=== PATIENT | female | born 1995 | race African-American/Black ===

== ENCOUNTER 2019-01-21 06:59 | Inpatient (IN) ==
[2019-01-21] MEDS ORDERED: BUTORPHANOL 2 MG/ML VIAL IV PRN (07:38)
[2019-01-21] MEDS ORDERED: ONDANSETRON 4 MG/2 ML VIAL IV PRN ×2 (07:38→15:46)
[2019-01-21] MEDS ORDERED: LACTATED RINGERS 500 ML IV PRN (07:38)
[2019-01-21 07:47] LABS: Basophils % 0.2 % (0.0-0.8); Eosinophils # 0.1 10*3/uL (0.0-0.87); Eosinophils % 0.6 % (0.00-10.9); Hematocrit 36.9 VOL% (35.7-47.0); Hemoglobin 11.9 GM/DL (12.0-16.0); Immature Granulocytes % 0.7 %; Immature Granulocytes Absolute 0.06 #; Lymphocytes # 2.5 10*3/uL (1.4-4.0); Lymphocytes % 28.2 % (21.3-54.2); Mean Corpuscular HGB Conc 32.2 GM/DL (32-36); Mean Corpuscular Hemoglobin 29 PG (27-34); Mean Corpuscular Volume 90.9 FL (87-102); Mean Platelet Volume 11.4 FL (9.6-12.0); Monocytes # 0.8 10*3/uL (0.11-0.8); Monocytes % 9.1 % (1.7-12.7); Neutrophils # 5.3 10*3/uL (1.4-7.4); Neutrophils % 61.2 % (38.7-73.9); Platelet Count 154 T/CUMM (130-400); Red Blood Count 4.06 MC/CUMM (3.8-5.5); White Blood Count 8.7 T/CUMM (4-12)
[2019-01-21] MEDS ORDERED: OXYTOCIN/LR 20 UNIT/1,000 ML BAG IV SCH (08:00)
[2019-01-21] MEDS ORDERED: LACTATED RINGERS 1,000 ML IV SCH (08:00)
[2019-01-21] MEDS ORDERED: LIDOCAINE 1% 50 ML VIAL ONE (09:23)
[2019-01-21] MEDS ORDERED: miSOPROStol 200 MCG TABLET ONE (09:23)
[2019-01-21] MEDS ORDERED: METHYLERGONOVINE 0.2 MG/1 ML AMP ONE (09:24)
[2019-01-21 10:07] LABS: Apearance,Urine CLEAR (Clear); Bacteria,Urine Occasional /HPF (Few); Bilirubin,Urine Negative (Negative); Blood, Urine Small mg/dL (Negative); Glucose,Urine (UA) Negative (Negative); Ketones,Urine Negative (Negative); Mucus,Urine Occasional /LPF (Occasional); Nitrite,Urine Negative (Negative); Protein,Urine Negative; RBC,Urine 1 /HPF (0-4); Squamous Epithelial Cell,Urine Occasional /HPF (0-10); Urine Color Yellow (Yellow); Urine Specific Gravity 1.012 (1.001-1.035); Urine Urobilinogen < 2.0 EU/DL (0.2-1.0); WBC,Urine 1 /HPF (0-6)
[2019-01-21] MEDS ORDERED: LANOLIN 50% CREAM 0.3 OZ TUBE TOP PRN (15:46)
[2019-01-21] MEDS ORDERED: HYDROCORTISONE 2.5% RECTAL CREAM 30 GM TUBE TOP PRN (15:46)
[2019-01-21] MEDS ORDERED: BISACODYL 10 MG SUPP RECTAL PRN (15:46)
[2019-01-21] MEDS ORDERED: IBUPROFEN 800 MG TABLET PO PRN (15:46)
[2019-01-21] MEDS ORDERED: DIPH/TET/ACEL PERT BOOSTER VACCINE 0.5 ML VIAL IM ONE (15:46)
[2019-01-21] MEDS ORDERED: BENZOCAINE 20%/MENTHOL 0.5% SPRAY 56 GM CAN TOP PRN (15:46)
[2019-01-21] MEDS ORDERED: oxyCODONE/ACETAMINOPHEN 5-325 MG TABLET PO PRN ×2 (15:46)
[2019-01-21] MEDS ORDERED: OXYTOCIN/LR 20 UNIT/1,000 ML BAG IV ONE (15:46)
[2019-01-21] MEDS ORDERED: RHO(D) IMMUNE GLOBULIN 300 MCG SYRINGE IM ONE (15:46)
[2019-01-21] MEDS ORDERED: MEASLES/MUMPS/RUBELLA VACCINE 0.5 ML VIAL SUBCUT ONE (15:46)
[2019-01-21] MEDS ORDERED: ACETAMINOPHEN 325 MG TABLET PO PRN (15:46)
[2019-01-21] MEDS ORDERED: WITCH HAZEL PADS 100/JAR TOP PRN (15:46)
[2019-01-21] MEDS: IBUPROFEN 800 MG TABLET PO PRN (15:53)
[2019-01-21] MEDS: DOCUSATE SODIUM 100 MG CAPSULE PO SCH (21:26)
[2019-01-22 04:55] LABS: Basophils % 0.3 % (0.0-0.8); Eosinophils # 0.1 10*3/uL (0.0-0.87); Eosinophils % 0.6 % (0.00-10.9); Hematocrit 37.1 VOL% (35.7-47.0); Hemoglobin 11.8 GM/DL (12.0-16.0); Immature Granulocytes % 0.4 %; Immature Granulocytes Absolute 0.05 #; Lymphocytes # 3.3 10*3/uL (1.4-4.0); Lymphocytes % 29.1 % (21.3-54.2); Mean Corpuscular HGB Conc 31.8 GM/DL (32-36); Mean Corpuscular Hemoglobin 29 PG (27-34); Mean Corpuscular Volume 91.6 FL (87-102); Mean Platelet Volume 11.7 FL (9.6-12.0); Monocytes # 1.1 10*3/uL (0.11-0.8); Monocytes % 9.4 % (1.7-12.7); Neutrophils # 6.9 10*3/uL (1.4-7.4); Neutrophils % 60.2 % (38.7-73.9); Platelet Count 147 T/CUMM (130-400); Red Blood Count 4.05 MC/CUMM (3.8-5.5); Red Cell Distribution Width 12.9 % (9.3-17.3); White Blood Count 11.4 T/CUMM (4-12)
[2019-01-22] MEDS: DOCUSATE SODIUM 100 MG CAPSULE PO SCH ×2 (09:45→21:06)
[2019-01-22] MEDS: IBUPROFEN 800 MG TABLET PO PRN (16:35)
[2019-01-23] MEDS: DOCUSATE SODIUM 100 MG CAPSULE PO SCH (09:02)
[2019-01-23 11:44] VITALS: BP 111/70
[2019-01-23] MEDS: IBUPROFEN 800 MG TABLET PO PRN (12:36)
== END 2019-01-23 13:50 | disposition home or self-care (01) | DRG 807 ==
LOC: N.LDOUT 06:59 → N.LD 07:01 → N.OB 12:35
PROVIDERS: ADMIT Obstetrics & Gynecology; ATTEND Obstetrics & Gynecology

== ENCOUNTER 2020-04-24 07:40 | Inpatient (IN) ==
[2020-04-24] MEDS ORDERED: ONDANSETRON 4 MG/2 ML VIAL IV PRN (08:05)
[2020-04-24] MEDS ORDERED: LACTATED RINGERS 500 ML IV PRN (08:05)
[2020-04-24] MEDS ORDERED: BUTORPHANOL 2 MG/ML VIAL IV PRN (08:05)
[2020-04-24] MEDS ORDERED: AMPICILLIN INJ 2,000 MG in SODIUM CHLORIDE 0.9% 100 ML IV ONE (08:08)
[2020-04-24] MEDS ORDERED: CITRIC ACID/SODIUM CITRATE 30 ML UDCUP PO ONE (08:11)
[2020-04-24] MEDS ORDERED: diphenhydrAMINE 50 MG/1 ML VIAL IV PRN (08:11)
[2020-04-24] MEDS ORDERED: PROMETHAZINE 25 MG/1 ML VIAL IM ONE (08:11)
[2020-04-24] MEDS ORDERED: hydrOXYzine HCL 25 MG/1 ML VIAL IM PRN (08:11)
[2020-04-24] MEDS ORDERED: LACTATED RINGERS 1,000 ML IV ONE (08:11)
[2020-04-24] MEDS ORDERED: ePHEDrine 50 MG/ML VIAL IV PRN (08:11)
[2020-04-24] MEDS ORDERED: FAMOTIDINE 20 MG/2 ML VIAL IV ONE (08:11)
[2020-04-24] MEDS ORDERED: NALOXONE 0.4 MG/ML VIAL IV PRN (08:11)
[2020-04-24] MEDS ORDERED: CARBOPROST TROMETHAMINE 250 MCG/ML AMP IM ONE (08:21)
[2020-04-24] MEDS ORDERED: METHYLERGONOVINE 0.2 MG/1 ML AMP ONE (08:21)
[2020-04-24] MEDS ORDERED: miSOPROStoL 200 MCG TABLET ONE (08:21)
[2020-04-24] MEDS ORDERED: TRANEXAMIC ACID 1,000 MG/10 ML VIAL ONE (08:21)
[2020-04-24] MEDS ORDERED: LIDOCAINE 1% 50 ML VIAL ONE (08:21)
[2020-04-24 08:23] LABS: Basophils % 0.2 % (0.0-0.8); Eosinophils # 0.1 10*3/uL (0.0-0.87); Eosinophils % 0.6 % (0.00-10.9); Hemoglobin 13.2 GM/DL (12.0-16.0); Immature Granulocytes % 0.5 %; Immature Granulocytes Absolute 0.04 #; Lymphocytes # 2.8 10*3/uL (1.4-4.0); Lymphocytes % 32.8 % (21.3-54.2); Mean Corpuscular HGB Conc 32.2 GM/DL (32-36); Mean Corpuscular Volume 90.7 FL (87-102); Mean Platelet Volume 11.1 FL (9.6-12.0); Monocytes % 7.6 % (1.7-12.7); Neutrophils % 58.3 % (38.7-73.9); Platelet Count 156 T/CUMM (130-400); Red Blood Count 4.52 MC/CUMM (3.8-5.5); Red Cell Distribution Width 13.7 % (9.3-17.3); White Blood Count 8.6 T/CUMM (4-12)
[2020-04-24] MEDS ORDERED: fentaNYL 2 MCG/ROPIV 0.2% EPID 100 ML EPIDURAL SCH (08:30)
[2020-04-24 08:49] LABS: Cord Arterial Blood HCO3 20.5 MMOL/L
[2020-04-24 08:50] LABS: Cord Venous Blood PCO2 38.6 MMHG; Cord Venous Blood PO2 36.5 MMHG
[2020-04-24] MEDS ORDERED: MEASLES/MUMPS/RUBELLA VACCINE 0.5 ML VIAL SUBCUT ONE (09:41)
[2020-04-24] MEDS ORDERED: OXYTOCIN/LR 20 UNIT/1,000 ML BAG IV PRN (09:41)
[2020-04-24] MEDS ORDERED: WITCH HAZEL PADS 100/JAR TOP PRN (09:41)
[2020-04-24] MEDS ORDERED: BISACODYL 10 MG SUPP RECTAL PRN (09:41)
[2020-04-24] MEDS ORDERED: LANOLIN 50% CREAM 0.3 OZ TUBE TOP PRN (09:41)
[2020-04-24] MEDS ORDERED: oxyCODONE/ACETAMINOPHEN 5-325 MG TABLET PO PRN ×2 (09:41)
[2020-04-24] MEDS ORDERED: BENZOCAINE 20%/MENTHOL 0.5% SPRAY 56 GM CAN TOP PRN (09:41)
[2020-04-24] MEDS ORDERED: DIPH/TET/ACEL PERT BOOSTER VACCINE 0.5 ML VIAL IM ONE (09:41)
[2020-04-24] MEDS ORDERED: ACETAMINOPHEN 325 MG TABLET PO PRN (09:41)
[2020-04-24] MEDS ORDERED: HYDROCORTISONE 2.5% RECTAL CREAM 30 GM TUBE TOP PRN (09:41)
[2020-04-24] MEDS: IBUPROFEN 800 MG TABLET PO PRN ×2 (10:04→23:51)
[2020-04-24 12:02] LABS: Hepatitis B Surface Ag Quant < 0.10 Index; Hepatitis B Surface Ag Result Negative (Negative)
[2020-04-24 13:35] LABS: HIV Antigen/Antibody Result Nonreactive (Nonreactive)
[2020-04-24] MEDS: DOCUSATE SODIUM 100 MG CAPSULE PO SCH (21:03)
[2020-04-25 05:59] LABS: Basophils % 0.4 % (0.0-0.8); Eosinophils # 0.1 10*3/uL (0.0-0.87); Eosinophils % 0.9 % (0.00-10.9); Hematocrit 35.3 VOL% (35.7-47.0); Hemoglobin 11.4 GM/DL (12.0-16.0); Immature Granulocytes % 0.5 %; Immature Granulocytes Absolute 0.05 #; Lymphocytes % 36.4 % (21.3-54.2); Mean Corpuscular HGB Conc 32.3 GM/DL (32-36); Mean Corpuscular Volume 91.7 FL (87-102); Mean Platelet Volume 11.7 FL (9.6-12.0); Monocytes % 9.3 % (1.7-12.7); Neutrophils % 52.5 % (38.7-73.9); Platelet Count 151 T/CUMM (130-400); Red Blood Count 3.85 MC/CUMM (3.8-5.5); Red Cell Distribution Width 13.7 % (9.3-17.3); White Blood Count 11.1 T/CUMM (4-12)
[2020-04-25] MEDS: DOCUSATE SODIUM 100 MG CAPSULE PO SCH (09:54)
[2020-04-25 11:15] VITALS: BP 106/75
== END 2020-04-25 15:00 | disposition home or self-care (01) | DRG 560 ==
LOC: N.LDOUT 07:40 → N.LD 07:42 → N.OB 13:52
PROVIDERS: ADMIT Obstetrics & Gynecology; ATTEND Obstetrics & Gynecology